=== PATIENT | female | born 1935 | race Caucasian/White ===

== ENCOUNTER 2016-09-29 21:02 | Emergency (ER) | payer OTHER ==
[2016-09-29 21:02] VITALS: BMI 15.0
[2016-09-29 21:15] VITALS: PULSE 66; RESP 16; TEMP 98.3; O2SAT 96
--- NOTE | 2016-09-29 21:35 | C.PDOC ---
History Of Present Illness Patient is an 80 year old female who presents to the ER after having a choking episode at home. Patient states she was sitting with family at home when she suddenly started choking on phlegm. Patient's family states she grabbed at her airway but was able to vocalize that she needed at glass of water. Patient reports episode lasted a minute, denies chest pain, SOB, color change, syncope or eating at the time of episode. Time Seen by Provider: 09/29/16 21:26 Chief Complaint (Nursing): Medical Clearance History Per: Patient History/Exam Limitations: no limitations Onset/Duration Of Symptoms: Mins Current Symptoms Are (Timing): Gone Severity: None Recent travel outside of the [place]: No Additional History Per: Family Past Medical History Reviewed: Historical Data, Nursing Documentation, Vital Signs Vital Signs: Last Vital Signs Temp 98.3 F 09/29/16 21:42 Pulse 66 09/29/16 21:42 Resp 16 09/29/16 21:42 BP 152/73 H 09/29/16 21:42 Pulse Ox 96 09/29/16 21:47 - Medical History PMH: Hypercholesterolemia - [facility] Procedures CORONAR ARTERIOGR-2 CATH (10/28/12) INSERTION OF ONE VASCULAR STENT (10/28/12) INSRT OF DRUG-ELUTING CORON ARTERY STENTS(S) (10/28/12) LEFT HEART CARDIAC CATH (10/28/12) LT HEART ANGIOCARDIOGRAM (10/28/12) PERCUTANEOUS TRANSLUMINAL CORONARY ANGIOPLASTY [PTCA] (10/28/12) PROCEDURE ON SINGLE VESSEL (10/28/12) Family History: States: Unknown Family Hx - Social History Hx Tobacco Use: No Hx Alcohol Use: No Hx Substance Use: No - Immunization History Hx Tetanus Toxoid Vaccination: No Hx Influenza Vaccination: No Hx Pneumococcal Vaccination: No Review Of Systems Constitutional: Negative for: Fever, Chills Cardiovascular: Negative for: Chest Pain Respiratory: Negative for: Shortness of Breath Neurological: Negative for: Other (Syncope) Physical Exam - Physical Exam Appears: Well, Non-toxic, No Acute Distress, Other (Comfortable) Skin: Normal Color, Warm, Dry Head: Atraumatic, Normacephalic Nose: Normal, No Discharge Oral Mucosa: Moist Tongue: Normal Appearing, No Erythema Throat: Normal, No Erythema, No Exudate, No Mass Neck: Normal, Normal ROM Chest: Symmetrical, No Tenderness Cardiovascular: Rhythm Regular, No Murmur Respiratory: Normal Breath Sounds, No Rales, No Rhonchi, No Wheezing Gastrointestinal/Abdominal: Soft, No Tenderness Neurological/Psych: Oriented x3, Normal Speech, Normal Cognition ED Course And Treatment O2 Sat by Pulse Oximetry: 96 (Room air) Pulse Ox Interpretation: Normal Disposition - Disposition Disposition: HOME/ ROUTINE Disposition Time: 21:34 Condition: IMPROVED Instructions: Performing the Heimlich Maneuver (ED) - Clinical Impression Clinical Impression: Choking due to phlegm - Scribe Statement The provider has reviewed the documentation as recorded by the Scribe Adriano Montes All medical record entries made by the Derickibe were at my direction and personally dictated by me. I have reviewed the chart and agree that the record accurately reflects my personal performance of the history, physical exam, medical decision making, and the department course for this patient. I have also personally directed, reviewed, and agree with the discharge instructions and disposition.
[2016-09-29 21:51] VITALS: BP 152/73
== END 2016-09-29 21:46 | disposition home or self-care (01) ==
LOC: C.ER 21:02
DX: T17.998A Other foreign object in respiratory tract, part unspecified causing other injury, initial encounter (principal); X58.XXXA Exposure to other specified factors, initial encounter; Y92.008 Other place in unspecified non-institutional (private) residence as the place of occurrence of the external cause